=== PATIENT | female | born 1945 | race Caucasian/White ===

== ENCOUNTER 2022-12-04 10:17 | Emergency (ER) | payer MEDICARE ==
[~2022-12-04] VITALS: Ht 152.4 cm; Wt 59.9 kg
[2022-12-04] MEDS ORDERED: IBUP-2076 PO (12:09)
[2022-12-04 12:36] VITALS: BP 129/51; PULSE 59; RESP 18; O2SAT 96
== END 2022-12-04 12:44 | disposition home or self-care (01) ==
LOC: EDH 10:17
DX: S00.83XA Contusion of other part of head, initial encounter (principal); M25.532 Pain in left wrist; E78.00 Pure hypercholesterolemia, unspecified; I10 Essential (primary) hypertension; W18.39XA Other fall on same level, initial encounter; Y93.89 Activity, other specified; Y92.89 Other specified places as the place of occurrence of the external cause; Y99.8 Other external cause status
CPT/HCPCS: 70450; 70486; 73090; 73110